=== PATIENT | male | born 1950 | race Caucasian/White ===

== ENCOUNTER → 2022-08-23 13:14 | Outpatient (CLI) | payer MEDICARE, BC, SELFPAY ==
--- NOTE | 2022-08-23 | DI.MRI.S_ITS ---
PROCEDURE: MR KNEE RT WO CON INDICATIONS: Chronic instability of knee, right knee TECHNIQUE: Noncontrast sagittal PD fast spin echo and T2 fast spin echo with fat saturation, sagittal 3-D FLASH with fat saturation; coronal T1 spin echo and PD fast spin echo with fat saturation, and axial PD fast spin echo with fat saturation through the knee. COMPARISON: [facility] [place], [place], XR KNEE 4+ VIEWS RIGHT, 08/12/2022, 10:06. FINDINGS: Image quality: Excellent. Anterior Cruciate Ligament: There is chronic complete tearing of the mid to proximal anterior cruciate ligament. Posterior Cruciate Ligament: Intact. Medial Collateral Ligament: A nonedematous ossification is seen at the midportion of the medial collateral ligament at the level of the femorotibial joint line, which may be the sequela of a prior partial liagment tear versus an intra-articular loose body. Lateral Collateral Ligament: Intact. Medial Meniscus: Diminutive appearance of the posterior horn and body of the medial meniscus may be secondary to chronic tearing and maceration if there has been no prior surgery. Lateral Meniscus: There is horizontal tearing of the body and posterior horn of the lateral meniscus with components extending to the inner third of the tibial articular surface, and the free edge margin, and the inner third of the femoral articular surface. A small lobular paralabral cyst is seen along the nonarticular margin measuring approximately 11 x 4 x 9 mm. Medial and Lateral Tendons: The semimembranosus tendon insertions and meniscocapsular junction appear intact. Visualized portions of the pes anserinus tendons appear normal. No abnormal bursal fluid. The long and short heads of the biceps femoris tendon appear intact. The popliteus tendon appears intact. No signs of posterolateral corner injury. Iliotibial band appears normal. Anterior Structures: Mild patellar tendinosis. The distal quadriceps tendon is intact. 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 No edema in the infrapatellar fat pad. The medial patellofemoral ligament appears attenuated near its femoral attachment. Bones: Mild chronic osseous irregularity of the anterolateral aspect of the lateral femoral condyle, which may be related to a remote prior impaction injury. No acute osseous edema or trabecular bone injury. Medial Femorotibial Cartilage: There is large area of high-grade and full-thickness cartilage loss in the weight-bearing portion of the medial femoral condyle and adjacent medial tibial plateau with marginal osteophyte formation. Lateral Femorotibial Cartilage: Moderate partial-thickness cartilage irregularity is seen in the central to posterior weight-bearing portion of the lateral femorotibial compartment with marginal osteophyte formation. Patellofemoral Cartilage: Mild partial-thickness cartilage irregularity at the medial femoral trochlea. Soft Tissues: A small joint effusion is present. There is a small medial popliteal cyst. A nonedematous ossified body measuring 17 x 7 x 12 mm is seen at the posterolateral aspect of the knee. The musculature surrounding the knee is normal in bulk. IMPRESSION: 1. 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 2. Complex tearing of the body and posterior horn of the medial meniscus with a diminutive residual rim of meniscal tissue. No displaced meniscal flap is seen. 3. Horizontal tearing of the body of the lateral meniscus with a lobular 11 mm parameniscal cyst laterally. 4. Tricompartmental osteoarthrosis including areas of full-thickness cartilage loss in the medial compartment and tricompartmental marginal osteophyte formation. 5. Mild patellar tendinosis. 6. Congenitally shallow trochlear groove with lateral patellar tilting but no patellar subluxation. The tibial tubercle-trochlear groove distance is within normal limits. 7. Medial patellofemoral ligament appears attenuated near its femoral attachment, and may be chronically torn. Chronic osseous irregularity of the anterolateral aspect of the lateral femoral condyle may be the sequela of a remote prior patellar dislocation injury. No acute trabecular bone injury. 8. Small joint effusion. Nonedematous 17 mm intra-articular loose body at the posterolateral aspect of the knee. 9. Nonedematous ossification medial to the femorotibial joint line is likely an intra-articular loose body, versus possibly a dystrophic ossification related to a prior medial collateral ligament partial tear. Approved by: Alberto Ralph M.D. on 08/23/2022 at 14:35
== END ==
PROVIDERS: PCP Family Medicine; Referring Provider Orthopaedic Surgery; Visit Provider Orthopaedic Surgery
DX: M23.51 Chronic instability of knee, right knee (principal); S83.511A Sprain of anterior cruciate ligament of right knee, initial encounter; S83.231A Complex tear of medial meniscus, current injury, right knee, initial encounter; S83.281A Other tear of lateral meniscus, current injury, right knee, initial encounter; M17.11 Unilateral primary osteoarthritis, right knee; M25.461 Effusion, right knee
CPT/HCPCS: 73721